=== PATIENT | female | born 1955 | race Caucasian/White ===

== ENCOUNTER 2025-04-29 15:03 | Emergency (ER) | payer MEDICARE ==
[~2025-04-29] VITALS: Ht 170.2 cm; Wt 67.1 kg
[~2025-04-29 15:03] MED LIST: ADULT LOW DOSE81 MG PO; MOTRIN IB200 MG PO; MULTIVITAMINS1 EAC7 PO; OXYCODON-ACETA1 EAC2 PO; PROBIOTIC1 EAC1 PO; ZYRTEC-D TABLE1 EACH PO
[2025-04-29] MEDS ORDERED: LACTULOSE 20 GM/30 ML CUP PO ONE (16:30)
[2025-04-29] MEDS ORDERED: LACTULOSE 20 GM/30 ML CUP ONE (16:39)
[2025-04-29] MEDS ORDERED: MAGNESIUM HYDROXIDE 30 ML UDC PO ONE (18:00)
[2025-04-29 18:55] LABS: BASOPHILS 0.7 % (0.1-1.2); EOSINOPHILS 1.1 % (0.7-5.8); LYMPHOCYTES 30.3 % (19.3-51.7); MCH 31.5 PG (25.6-32.2); MCHC 33.7 g/dL (32.2-35.5); MCV 93.5 fL (79.4-94.8); MONOCYTES 7.9 % (4.7-12.5); NEUTROPHILS 59.8 % (34.0-71.1); RBC 4.63 M/uL (3.93-5.22)
[2025-04-29 19:16] LABS: ALT (SGPT) 30.0 U/L (14-59); AST (SGOT) 26.0 U/L (15-37); GLOMERULAR FILTRATION RATE,EST 100.0 mL/min (>60); PROTEIN, TOTAL 7.9 g/dL (6.4-8.2); UREA NITROGEN 10.0 mg/dL (7-18)
[2025-04-29] MEDS ORDERED: SOD PHOSPHATE/SOD BIPHOSPHATE 132 ML BTL PR ONE (20:30)
[2025-04-29 22:36] VITALS: BP 130/78
== END 2025-04-29 22:37 | disposition home or self-care (01) ==
LOC: ED 15:03
PROVIDERS: Emergency Medicine
DX: K59.00 Constipation, unspecified (principal); F17.200 Nicotine dependence, unspecified, uncomplicated; Z79.82 Long term (current) use of aspirin; Z79.899 Other long term (current) drug therapy
CPT/HCPCS: 36415; 74177; 80053; 83690; 85025; 99284-25; Q9967